=== PATIENT | male | born 1980 | race Two or more races ===

== ENCOUNTER 2018-09-30 09:00 | Emergency (ER) | payer BC, OTHER ==
[~2018-09-30] VITALS: Ht 180.3 cm; Wt 133.8 kg
[2018-09-30 09:23] VITALS: BP 148/90
== END 2018-09-30 10:56 | disposition home or self-care (01) ==
LOC: ER 09:14
DX: H10.31 Unspecified acute conjunctivitis, right eye (principal); J03.80 Acute tonsillitis due to other specified organisms; B97.89 Other viral agents as the cause of diseases classified elsewhere